=== PATIENT | male | born 2000 | race African-American/Black ===

== ENCOUNTER 2024-05-23 10:34 | Emergency (ER) | payer SELFPAY ==
[~2024-05-23] VITALS: Ht 182.9 cm; Wt 127.0 kg
[2024-05-23 10:44] VITALS: BP 132/67; O2SAT 99
[2024-05-23 12:07] LABS: CLARITY URINE CLEAR (CLEAR); COLOR URINE YELLOW (YELLOW); GLUCOSE URINE NEGATIVE (NEGATIVE); KETONES URINE TRACE (NEGATIVE); LEUKOCYTE ESTERASE URINE TRACE (NEGATIVE); NITRITE URINE NEGATIVE (NEGATIVE); OCCULT BLOOD URINE NEGATIVE (NEGATIVE); PROTEIN URINE NEGATIVE (NEGATIVE); SPECIFIC GRAVITY URINE 1.023 (1.005-1.030)
[2024-05-23] MEDS: CEFTRIAXONE SODIUM 500MG VIAL IM ONE (12:08)
[2024-05-23] MEDS: LIDOCAINE HCL 1% 20ML VIAL INFIL ONE (12:08)
[2024-05-23 12:23] LABS: BACTERIA URINE FEW; RBC URINE 0-2 /hpf (0-2); SQUAMOUS EPITHELIAL CELL URINE RARE /lpf (RARE/1+); YEAST URINE NONE SEEN
[2024-05-23] MEDS ORDERED: DOXY100T28 MT (12:33)
[2024-05-23 13:10] VITALS: PULSE 91; RESP 16; TEMP 37.11408; O2SAT 99
== END 2024-05-23 13:19 | disposition home or self-care (01) ==
LOC: ER 10:34
DX: N34.2 Other urethritis (principal); R30.0 Dysuria; Z20.2 Contact with and (suspected) exposure to infections with a predominantly sexual mode of transmission
CPT/HCPCS: 99283; 81003; 87491; 96372; J0696; J3490